=== PATIENT | female | born 1955 | race Caucasian/White ===

== ENCOUNTER 2018-09-01 09:15 | Inpatient (IN) | payer MEDICAID ==
[~2018-09-01] VITALS: Ht 170.2 cm; Wt 63.5 kg
[2018-09-01] VITALS (9 sets, daily range): BP systolic 103–152; BP diastolic 55–79; BMI 21.9
[2018-09-01] MEDS ORDERED: VITAMIN D31000 UNI2 PO (09:23)
[2018-09-01] MEDS ORDERED: ZANTAC300 MG PO (09:23)
[2018-09-01] MEDS ORDERED: MULTI-DAY VITAM1 TAB PO (09:24)
[2018-09-01] MEDS ORDERED: PLAVIX75 MG PO (09:24)
[2018-09-01] MEDS ORDERED: BAYER CHEWABLE81 MG PO (09:24)
[2018-09-01] MEDS ORDERED: SYNTHROID88 MCG PO (09:24)
--- NOTE | 2018-09-01 10:39 | NUR ---
HOLDING ORDERED LEVOPHED AT THIS TIME D/T CURRENT VS, SYSTOLIC BP AND MAP WITHIN DEFINED PARAMETERS WITHOUT MEDICATION. WILL CONTINUE TO MONITOR.
[2018-09-01 10:52] LABS: APTT 30.7 SECONDS (22.8-39.4); INR 1.21 (0.85-1.17); PROTIME 14.8 SECONDS (11.6-15.0)
[2018-09-01 10:54] LABS: ALBUMIN 2.1 g/dL (3.4-5.0); ALKALINE PHOSPHATASE 113 U/L (46-116); ALT (SGPT) 105 U/L (10-68); BILIRUBIN - TOTAL 0.97 mg/dL (0.2-1.3); CALC OSMOLALITY 275 mosm/kg (275-300); CALCIUM 7.2 mg/dL (8.5-10.1); CARBON DIOXIDE 25.1 mmol/L (21.0-32.0); CHLORIDE - SERUM 104 mmol/L (98-107); CREATININE - SERUM 1.2 mg/dL (0.6-1.3); GLUCOSE 116 mg/dL (74-106); POTASSIUM - SERUM 4.4 mmol/L (3.5-5.1); PROTEIN - SERUM 5.5 g/dL (6.4-8.2); SODIUM 136 mmol/L (136-145); UREA NITROGEN 21 mg/dL (7-18); eGFR NON AFRICAN AMERICAN 48 mL/min (90-120)
[2018-09-01 11:10] LABS: CREATINE KINASE 20 UL (21-215)
[2018-09-01 11:15] LABS: HEMATOCRIT 34.7 % (36.0-48.0); HEMOGLOBIN 11.4 g/dL (12-16); MCH 27.7 pg (26.0-34.0); MCHC 32.9 g/dL (31.0-37.0); MCV 84.4 fL (80.0-100.0); MEAN PLATELET VOLUME 10.6 fL (7.4-10.4); PLATELET COUNT 268 10x3/uL (130-400); RBC 4.11 10x6/uL (4.00-5.40); RDW 15.8 % (11.5-14.5)
--- NOTE | 2018-09-01 11:18 | NUR ---
NOTIFIED BY LAB OF ELEVATED TROPONIN OF 0.7. EDP DR. URBINA AND ADMITTING MED NOTIFIED.
[2018-09-01 11:38] LABS: APPEARANCE CLEAR (CLEAR); BILIRUBIN NEGATIVE (NEGATIVE); COLOR YELLOW (YELLOW); GLUCOSE NEGATIVE (NEGATIVE); KETONE NEGATIVE (NEGATIVE); NITRITE NEGATIVE (NEGATIVE); PROTEIN TRACE mg/dL (NEGATIVE); SPECIFIC GRAVITY 1.015 (1.005-1.020)
[2018-09-01 11:40] LABS: BACTERIA FEW /hpf (NONE SEEN); EPITHELIAL CELLS 0-5 /hpf (0-5); MUCUS <1+ /lpf (NONE SEEN); WHITE CELLS - URINE RARE /hpf (0-5)
[2018-09-01 12:00] LABS: LYMPHOCYTES 12 % (15-50); MONOCYTES 7 % (2-11); NEUTROPHILS 76 % (40-80); PLATELET ESTIMATE NORMAL
--- NOTE | 2018-09-01 12:06 | NUR ---
PT RECIEVED. ASSESSMENT COMPLETE PER FLOW SHEET VSS WILL CONTINUE TO MONITOR
[2018-09-01 13:06] LABS: % SATURATION 3 % (15-55); IRON 8 ug/dl (35-150); TOTAL IRON BIND CAPACITY 203 ug/dl (260-445); UNSAT IRON BIND CAPACITY 195 ug/dl (150-375)
[2018-09-01 13:21] LABS: MAGNESIUM - SERUM 1.8 mg/dL (1.8-2.4); T4 THYROXIN - FREE 1.27 ng/dL (0.76-1.46); THYROID STIMULATING HORMONE 2.06 uIU/mL (0.36-3.74)
--- NOTE | 2018-09-01 16:05 | NUR ---
DR KELLEY AT BEDSIDE UPDATE GIVEN NEW ORDERS RECEIVED
--- NOTE | 2018-09-01 16:30 | NUR ---
DR NGUYEN AT BEDSIDE. NEW ORDERS RECIEVED
[2018-09-01 17:13] LABS: CKMB 2.3 U/L (0.0-3.6); CREATINE KINASE 20 UL (21-215)
[2018-09-01 17:14] LABS: TROPONIN-I 0.762 ng/mL (0.000-0.060)
--- NOTE | 2018-09-01 17:58 | NUR ---
REPORT CALLED TO ERICA ON MED SURG, PT TRANSFERRED VIA WHEELCHAIR
[2018-09-01 18:41] LABS: ERYTHROCYTE SEDIMENTATION RATE 1 mm/hr (0-30)
[2018-09-01 22:57] LABS: CKMB 1.7 U/L (0.0-3.6); CREATINE KINASE 16 UL (21-215)
[2018-09-01 22:58] LABS: TROPONIN-I 0.827 ng/mL (0.000-0.060)
--- NOTE | 2018-09-02 03:01 | NUR ---
1999)REQUESTING DINNER ON RETURNING FROM XRAY.STATES ICU SAID I WOULD HAVE A REAL TRAY AND NOT THIS YEE ANGELITA KAPLAN SHIT. HOUSESUPERVISOR CALLED REGUARDING REAL TRAY. REAL TRAY REC'D. REQUESTED. REINFORCED NPO AT PA. STATES I ALREADY KNOW THAT SONU SHIT.WILL CONTINUE TO MONITOR FOR ANY CHGES. AND FOLLOW CURRENT PLAN OF CARE.
[2018-09-02 05:02] VITALS: BP 129/72
[2018-09-02 05:53] LABS: BASOPHILS 0.1 % (0-2); EOSINOPHILS 1.3 % (0-7); HEMATOCRIT 32.9 % (36.0-48.0); HEMOGLOBIN 11.1 g/dL (12-16); LYMPHOCYTES 16.5 % (15-50); MCH 28.6 pg (26.0-34.0); MCHC 33.7 g/dL (31.0-37.0); MCV 84.8 fL (80.0-100.0); MEAN PLATELET VOLUME 11.1 fL (7.4-10.4); MONOCYTES 11.1 % (2-11); PLATELET COUNT 234 10x3/uL (130-400); RBC 3.88 10x6/uL (4.00-5.40); RDW 16.1 % (11.5-14.5)
[2018-09-02 06:09] LABS: ALKALINE PHOSPHATASE 101 U/L (46-116); ALT (SGPT) 103 U/L (10-68); BILIRUBIN - TOTAL 0.41 mg/dL (0.2-1.3); CALC OSMOLALITY 276 mosm/kg (275-300); CARBON DIOXIDE 26.7 mmol/L (21.0-32.0); CHLORIDE - SERUM 105 mmol/L (98-107); CKMB 1.6 U/L (0.0-3.6); CREATINE KINASE 14 UL (21-215); GLUCOSE 83 mg/dL (74-106); POTASSIUM - SERUM 4.1 mmol/L (3.5-5.1); PROTEIN - SERUM 5.1 g/dL (6.4-8.2); SODIUM 138 mmol/L (136-145); UREA NITROGEN 17 mg/dL (7-18); eGFR NON AFRICAN AMERICAN 59 mL/min (90-120)
[2018-09-02 06:11] LABS: TROPONIN-I 0.727 ng/mL (0.000-0.060)
[2018-09-02 07:25] LABS: APTT 36.7 SECONDS (22.8-39.4); INR 1.14 (0.85-1.17); PROTIME 14.1 SECONDS (11.6-15.0)
--- NOTE | 2018-09-02 07:26 | NUR ---
I have reviewed this patient and I concur with the Shift Assessment completed by the Licensed Practical Nurse today this shift.
--- NOTE | 2018-09-02 08:20 | NUR ---
PATIENT IN BED WITH IV INTACT. NO COMPLAINTS OR SIGNS OF DISTRESS. FAMILY AT BEDSIDE. CALL LIGHT WITHIN REACH.
[2018-09-02 09:30] VITALS: BP 134/64
[2018-09-02 12:13] LABS: FOLATE (FOLIC ACID) - SERUM 13.2 ng/mL (>3.0)
[2018-09-02 12:45] VITALS: BP 129/51
[2018-09-02 12:48] VITALS: Ht 170.2 cm; Wt 63.5 kg
[2018-09-02 17:11] VITALS: BP 114/56
--- NOTE | 2018-09-02 17:50 | NUR ---
PATIENT LEFT FA IV REMOVED WITH CATH TIP INTACT DUE TO PAIN WHEN STARTED IRON. RIGHT ARM IV CDI. LEVAQUIN INFUSING. NO COMPLAINTS OR SIGNS F DISTRESS. CALLL IGHT WITHIN REACH.
--- NOTE | 2018-09-02 19:00 | NUR ---
REPORT RECEIVED AND CARE OF PT ASSUMED. PT LYING IN SUPINE POSITION WATCHING TV. IV IN RIGHT FA PATENT. TELEMETRY IN PLACE READING 84 SR AT THIS ASSESSMENT. DRESSING ON RIGHT HIP CLEAN AND DRY. WILL MONITOR FOR NEEDS.
[2018-09-02 20:02] VITALS: BP 97/52
--- NOTE | 2018-09-02 20:22 | NUR ---
HS MEDICATIONS GIVEN. WILL CONTINUE TO MONITOR FOR NEEDS.
--- NOTE | 2018-09-03 03:43 | NUR ---
PT TAKING PRN TYLENOL SEVERAL TIMES THIS SHIFT FOR BACK AND LEG PAIN. DISCUSSED IF SHE NEEDS STRONGER PAIN MED AND SHE DECLINED, SAYING THEY MAKE HER SICK. WILL CONTINUE TO MONITOR FOR NEEDS.
[2018-09-03 04:00] VITALS: BP 103/55
[2018-09-03 06:33] LABS: ALBUMIN 2.2 g/dL (3.4-5.0); ANION GAP 10.3 mmol/L (8-16); BILIRUBIN - TOTAL 0.49 mg/dL (0.2-1.3); CALCIUM 8.4 mg/dL (8.5-10.1); CARBON DIOXIDE 27.6 mmol/L (21.0-32.0); POTASSIUM - SERUM 3.9 mmol/L (3.5-5.1); PROTEIN - SERUM 5.5 g/dL (6.4-8.2)
[2018-09-03 06:46] LABS: HEMATOCRIT 35.2 % (36.0-48.0); HEMOGLOBIN 11.7 g/dL (12-16); MCH 27.9 pg (26.0-34.0); MCHC 33.2 g/dL (31.0-37.0); MCV 83.8 fL (80.0-100.0); MEAN PLATELET VOLUME 11.2 fL (7.4-10.4); PLATELET COUNT 267 10x3/uL (130-400); RDW 15.5 % (11.5-14.5); WBC 20.4 10x3/uL (4.8-10.8)
[2018-09-03 08:37] LABS: EOSINOPHILS 3 % (0-7); LYMPHOCYTES 16 % (15-50); MONOCYTES 8 % (2-11); NEUTROPHILS 71 % (40-80); PLATELET ESTIMATE NORMAL
[2018-09-03 08:38] LABS: POIKILOCYTOSIS 1+
[2018-09-03 08:40] VITALS: BP 155/69
--- NOTE | 2018-09-03 11:00 | NUR ---
PT RESTING IN BED. NO SIGNS OF DISTRESS. IV TO RIGHT FORARM PATENT NO REDNESS OR TENDERNESS. COMPLAINS OF PAIN. MEDICATIONS GIVEN. DENIES ANY FUTHER NEED AT THIS TIME. CALL LIGHT IN REACH. NO FAMILY AT BEDSIDE AT THIS TIME.
--- NOTE | 2018-09-03 12:41 | MORECARE ---
CASE MANAGEMENT DISCHARGE SUMMARY PATIENT: JOSE C STALEY UNIT: [id number] ADM DATE: 09/01/18 AGE: 63 : 53 SEX: F ROOM/BED: D.2233 AUTHOR: GENESIS,DOC PHYSICIAN: REFERRING PHYSICIAN: SYDNEE KELLEY MD DATE OF SERVICE: 09/03/18 Discharge Plan Patient Name: JOSE C STALEY Facility: [facility]:[place] : 1955 Planned Disposition: Home Anticipated Discharge Date: Discharge Date: Expected LOS: Initial Reviewer: [email or web address] Initial Review Date: 09/03/2018 Generated: 09/03/18 1:41 pm Comments DCP- Discharge Planning Updated by [email or web address]: Tegan Gonzalez on 09/03/18 11:[address] Patient Name: JOSE C STALEY Admission Status: ER Accout number: [id number] Admission Date: 09-01-2018 : 1955 Admission Diagnosis: Attending: SYDNEE KELLEY Current LOS: 2 Anticipated DC Date: Planned Disposition: Home [place] Insurance: [place] PR[employer] [place]AY[place] Discharge Planning Comments: CM met with patient to complete initial dc planning assessment. CM educated patient on the CM role and verbal consent given by patient to complete assessment. Patient lives at home with her disabled . At discharge patient plans to return and feels this is a safe discharge. States her is able to care for himself in her absence and she has family and lutheran members checking on him. CM discussed availability of home health, rehab services, and medical equipment. Patient denied known discharge needs at this time. CM will continue to follow and will assist as needed with dc plans/needs. Measurement Operator: Tegan Gonzalez DCPIA - Discharge Planning Initial Assessment Updated by [email or web address]: Tegan Gonzalez on 09/03/18 12:38 pm * Is the patient Alert and Oriented? Yes * How many steps to enter\exit or inside your home? Ramp/0 * PCP Dr. Mickey Soto in [place] * Pharmacy [facility] in [place] * Preadmission Environment Home with Family * ADLs Independent * Equipment Bedside Commode Cane Elevated Toliet Seat Walker * List name and contact numbers for known caregivers / representatives who currently or will assist patient after discharge: Zach White - erica - [phone] * Verbal permission to speak to the caregivers and representatives has been obtained from the patient. Yes * Community resources currently utilized None * Additional services required to return to the preadmission environment? No * Can the patient safely return to the preadmission environment? Yes * Has this patient been hospitalized within the prior 30 days at any hospital? Yes Patient Name: JOSE C STALEY Page [id number] at 1241 All edits/amendments must be made on the electronic document DICTATION DATE: 09/03/18 1241 PIN BALL MACHINE MECHANIC: KIRIT 09/03/18 1241 RPT#: [id number] MO DATE: STATUS: ADM IN [facility] [address] [place] [address] END OF REPORT
[2018-09-03 13:16] VITALS: BP 123/636
--- NOTE | 2018-09-03 16:42 | EC ---
PATIENT:JOSE C STALEY DATE OF SERVICE: 09/01/18 SEX: F MEDICAL RECORD: [id number] DATE OF : 53 LOCATION:D.[facility] [address] AGE OF PATIENT: 63 ADMISSION DATE: 09/01/18 REFERRING PHYSICIAN: INTERPRETING PHYSICIAN: RUBEN ALDANA MD ECHOCARDIOGRAM REPORT ECHO CHARGES 4 ECHO COMPLETE Date: 09/01/18 CLINICAL DIAGNOSIS: CHF H/O TAVR ECHOCARDIOGRAPHIC MEASUREMENTS (adult normal given) AC root (d.<3.7cm) 2.8 cm LV Septum d (<1.2 cm> 1.3 cm Valve Excursion 1.8 cm LV Septum (systole) 1.5 cm Left Atria (s.<4.0cm> 3.5 cm LVPW d(<1.2cm) 1.3 cm RV (d.<2.3cm) 2.7 cm LVPW (sytole) 1.7 cm LV diastole(<5.6CM) 4.6 cm MV E-F(>70mm/sec) cm LV systole 3.3 cm LVOT Diameter 1.6 cm MV exc.(>10mm) cm Est.ejection fraction (50-75%) % DOPPLER: LVIT cm/sec A 52.0 cm/sec E 82.0 cm/sec LA cm/sec RVSP 33.3 mmHg LVOT 89.0 cm/sec AOP1/2T m/s Asc. Ao 221 cm/sec RVOT 59.0 cm/sec RA cm/sec PA 90.0 cm/sec AV Gradient Peak 20.0 mmHg AV Mean 10. mmHg AV Area 0.7 cm MV Gradient Peak 3.5 mmHg MV Mean 1.2 mmHg MV Area cm COMMENTS: Director Of Medicare: Dru OLIVIEROE Client Support Consultant: 1 Dr. Aldana TAPE# PACS Pericardial Effusion N DATE OF SERVICE: 09/01/2018 PROCEDURE: Echocardiogram. FINDINGS: 1. Technically difficult study secondary to breast implants. 2. Left ventricular chamber size is within normal limits. Left ventricular systolic function is normal. Overall ejection fraction estimated at 50%. 3. Left atrium, right atrium, and right ventricular chamber sizes are within normal limits. ECHOCARDIOGRAM REPORT [id number] JOSE C STALEY 4. Valvular structures: Aortic valve has some tissue prosthesis that has normal structure and function in this position. The valve area does calculate narrowed at 0.7 cm-squared and there is a gradient of 20 mm across the valve, giving at least mild aortic stenosis. The remaining valvular structures have normal structure and motion. 5. Doppler interrogation elsewise reveals mild aortic insufficiency, mild mitral regurgitation, severe tricuspid regurgitation, no other valvular insufficiency or stenosis. Pulmonary systolic pressure is preserved at 33 mmHg. 6. No evidence of pericardial effusion or left ventricular thrombus. TRANSINT:[id number] Voice Confirmation ID: [id number] DOCUMENT ID: [id number] RUBEN ALDANA MD at 1642 CC: [id number] DICTATION DATE: 09/02/18 0848 ROOF BOLTER: 09/02/18 1031 ADM IN [facility] [address] [place] [id number]
[2018-09-03 16:50] VITALS: BP 118/57
--- NOTE | 2018-09-03 19:00 | NUR ---
REPORT RECEIVED AND CARE OF PT ASSUMED. PT LYING IN SUPINE POSITION WATCHING TV. IV IN RIGHT FA PATENT WITH LEVAQUIN INFUSING. WILL MONITOR FOR NEEDS.
--- NOTE | 2018-09-03 19:30 | NUR ---
GAVE TYLENOL 650 MG PO PER PT REQUEST FOR BACK AND LEG PAIN. WILL MONITOR FOR NEEDS.
[2018-09-03 20:00] VITALS: BP 114/58
--- NOTE | 2018-09-03 20:59 | NUR ---
HS MEDICATIONS GIVEN. ALSO PROVIDED WITH WARM BLANKET PER REQUEST. WILL CONTINUE TO MONITOR FOR NEEDS.
[2018-09-04] VITALS: BP 136/65
--- NOTE | 2018-09-04 00:12 | NUR ---
GAVE TYLENOL 650 MG PT PER REQUEST FOR BACK AND LEG PAIN. WILL CONTINUE TO MONITOR FOR NEEDS.
[2018-09-04 04:00] VITALS: BP 101/55
[2018-09-04 06:36] LABS: BASOPHILS 0.3 % (0-2); EOSINOPHILS 0.7 % (0-7); HEMATOCRIT 37.7 % (36.0-48.0); HEMOGLOBIN 12.8 g/dL (12-16); IMMATURE GRANULOCYTES 2.6 % (0-5); LYMPHOCYTES 13.8 % (15-50); MCH 28.3 pg (26.0-34.0); MCV 83.2 fL (80.0-100.0); MEAN PLATELET VOLUME 10.7 fL (7.4-10.4); NEUTROPHILS 72.6 % (40-80); PLATELET COUNT 271 10x3/uL (130-400); RBC 4.53 10x6/uL (4.00-5.40); RDW 15.4 % (11.5-14.5); WBC 24.6 10x3/uL (4.8-10.8)
[2018-09-04 07:00] LABS: ALBUMIN 2.4 g/dL (3.4-5.0); ANION GAP 13.4 mmol/L (8-16); BILIRUBIN - TOTAL 0.77 mg/dL (0.2-1.3); CALCIUM 8.6 mg/dL (8.5-10.1); CARBON DIOXIDE 25.6 mmol/L (21.0-32.0); CREATININE - SERUM 0.9 mg/dL (0.6-1.3); PROTEIN - SERUM 6.2 g/dL (6.4-8.2)
--- NOTE | 2018-09-04 07:35 | NUR ---
RESTING IN BED. ALERT AND ORIENTED X 3. LUNGS CLEAR BILATERALLY IN ALL EUBANKS. HEART SOUNDS S1 AND S2 HEARD IN ALL EUBANKS. TELEMETRY IN PLACE. BOWEL SOUNDS ACTIVE X 4. SKIN INTACT WITHOUT REDNESS. DENIES PAIN. DENIES NEEDS. IV TO RFA SL PATENT WITHOUT REDNESS. BED LOW. CALL POP AND PERSONAL ITEMS IN REACH. WILL CONTINUE TO MONITOR.
[2018-09-04 09:13] VITALS: BP 126/63
--- NOTE | 2018-09-04 10:00 | NUR ---
RESTING IN BED. PAIN DECREASED TO 3/10 AFTER PRN TYLENOL. DENIES NEEDS.
--- NOTE | 2018-09-04 12:30 | NUR ---
RESTING IN BED. DENIES PAIN. DENIES NEEDS.
[2018-09-04] MEDS ORDERED: LEVAQUIN750 MG PO (12:44)
--- NOTE | 2018-09-04 13:59 | MORECARE ---
CASE MANAGEMENT DISCHARGE SUMMARY PATIENT: JOSE C STALEY UNIT: [id number] ADM DATE: 09/01/18 AGE: 63 : 53 SEX: F ROOM/BED: D.2233 AUTHOR: GENESIS,DOC PHYSICIAN: REFERRING PHYSICIAN: SYDNEE KELLEY MD DATE OF SERVICE: 09/04/18 Discharge Plan Patient Name: JOSE C STALEY Facility: [facility]:[place] : 1955 Planned Disposition: Home Anticipated Discharge Date: 09/04/18 Discharge Date: Expected LOS: 3 Initial Reviewer: [email or web address] Initial Review Date: 09/03/2018 Generated: 09/04/18 2:59 pm Comments DCP- Discharge Planning Updated by [email or web address]: Zoraida Lechuga on 09/04/18 12:[address] PATIENT FOR DISCHARGE TODAY. SHE DENIES ANY NEEDS. SHE LIVES IN [place], [place]. WHEN QUESTIONED , STATES HER GRANDDAUGHTER IS PROVIDING TRANSPORTATION TO HOME. DCP- Discharge Planning Updated by [email or web address]: Tegan Gonzalez on 09/03/18 11:[address] Patient Name: JOSE C STALEY Admission Status: ER Accout number: [id number] Admission Date: 09-01-2018 : 1955 Admission Diagnosis: Attending: SYDNEE KELLEY Current LOS: 2 Anticipated DC Date: Planned Disposition: Home [place] Insurance: [place] [employer] [place]AY[place] Discharge Planning Comments: CM met with patient to complete initial dc planning assessment. CM educated patient on the CM role and verbal consent given by patient to complete assessment. Patient lives at home with her disabled . At discharge patient plans to return and feels this is a safe discharge. States her is able to care for himself in her absence and she has family and taoist members checking on him. CM discussed availability of home health, rehab services, and medical equipment. Patient denied known discharge needs at this time. CM will continue to follow and will assist as needed with dc plans/needs. Laborer [place]: Tegan Gonzalez DCPIA - Discharge Planning Initial Assessment Updated by [email or web address]: Tegan oGnzalez on 09/03/18 12:38 pm * Is the patient Alert and Oriented? Yes * How many steps to enter\exit or inside your home? Ramp/0 * PCP Dr. Mickey Soto in [place] * Pharmacy [facility] in [place] * Preadmission Environment Home with Family * ADLs Independent * Equipment Bedside Commode Cane Elevated Tol[place] Seat Walker * List name and contact numbers for known caregivers / representatives who currently or will assist patient after discharge: Zach White - erica - [phone] * Verbal permission to speak to the caregivers and representatives has been obtained from the patient. Yes * Community resources currently utilized None * Additional services required to return to the preadmission environment? No * Can the patient safely return to the preadmission environment? Yes * Has this patient been hospitalized within the prior 30 days at any hospital? Yes Last DP export: 09/03/18 11:41 a Patient Name: JOSE C STALEY Page [id number] at 1359 All edits/amendments must be made on the electronic document DICTATION DATE: 09/04/18 1351 STABLE MANAGER: KIRIT 09/04/18 1358 RPT#: [id number] DC DATE: STATUS: ADM IN [facility] [address] [place] [address] END OF REPORT
[2018-09-04 14:18] VITALS: BP 103/55
--- NOTE | 2018-09-04 14:29 | NUR ---
DISCHARGE EDUCATION PROVIDED BOTH WRITTEN AND VERBAL. VERBALIZED UNDERSTANDING. DENIES FURTHER QUESTIONS. TELEMETRY REMOVED AND RETURNED. IV REMOVED TO RFA WITH TIP INTACT. EXTRA DRSG GIVEN TO PATIENT. DISCHARGED HOME WITH GRANDDAUGHTER WITH ALL BELONGINGS.
== END 2018-09-04 15:04 | disposition home or self-care (01) | DRG 841 ==
LOC: D.ER 09:15 → D.ICU 10:38 → D.MS 10:38
PROVIDERS: Family Medicine; General Practice; ADMIT Internal Medicine Nephrology; ATTEND Internal Medicine Nephrology
PROC: 07DR3ZX Extraction of Iliac Bone Marrow, Percutaneous Approach, Diagnostic (ICD-10-PCS; principal; 2018-09-02 11:22)
DX: C92.20 Atypical chronic myeloid leukemia, BCR/ABL-negative, not having achieved remission (principal); Q89.01 Asplenia (congenital); J70.1 Chronic and other pulmonary manifestations due to radiation; I42.7 Cardiomyopathy due to drug and external agent; I24.8 Other forms of acute ischemic heart disease; N17.9 Acute kidney failure, unspecified; I50.22 Chronic systolic (congestive) heart failure; J70.3 Chronic drug-induced interstitial lung disorders; E86.0 Dehydration; I95.2 Hypotension due to drugs; T42.4X5A Adverse effect of benzodiazepines, initial encounter; T66.XXXA Radiation sickness, unspecified, initial encounter; K21.9 Gastro-esophageal reflux disease without esophagitis